=== PATIENT | female | born 1990 | race Caucasian/White ===

== ENCOUNTER 2017-01-03 15:53 | Emergency (ER) | payer MEDICAID ==
[~2017-01-03] VITALS: Ht 162.6 cm; Wt 64.0 kg
[~2017-01-03 15:53] MED LIST: ACET325 PO; META0.52 PO; PREN0.01 PO; SUMA25 PO; ZOFR4TAB3 SL
[2017-01-03 16:02] VITALS: BP 126/75; PULSE 103; RESP 18; TEMP 97.6; O2SAT 97
[2017-01-03] MEDS ORDERED: PREN29TA PO (16:32)
--- NOTE | 2017-01-03 16:56 | PD ---
HPI Chief Complaint: ENT Complaint Time Seen by Provider: 16:56 Travel History International Travel<30 days: No Contact w/Intl Traveler<30days: No Traveled to known affect area: No History of Present Illness HPI 26-year-old 7 month female presents to the ED for evaluation of dull hearing on the left. States that she "gets a lot of wax buildup." She had been cleaning her ears with Q-tips and noticed dark orange wax in the left side so began treating with ear wax softener, sweet oil and peroxide. She states that she did rinse quite a bit of debris from the ear but now she "can't hear" from that side. Denies fever or chills, headaches. She does endorse mild dizziness with certain motions. Endorses good motion and established COLLATERAL CLERK care. Denies chronic health problems. Takes vitamins daily. NKDA. PFSH Past Medical History Medical History: Denies Significant Hx Cancer: No Diabetes: No Diminished Hearing: No Psychiatric: No Immunizations Current: No Migraines: Yes Seizures: No Thyroid Disease: No Ulcer: No Influenza Vaccination: No ?: LMP: 7 MONTHS Past Surgical History Surgical History: No Previous Surgery Other Surgery: No Social History Alcohol Use: No Tobacco Use: No Substance Use: Yes (NOEMY) Allergies-Medications (Allergen,Severity, Reaction): Coded Allergies: Flagyl (Verified Allergy, Mild, headache, 01/03/17) Reported Meds & Prescriptions Reported Meds & Active Scripts Active Reported Plus Iron 29-1 mg ( Vit-Iron Carbonyl) 1 Tab Tab 1 Tab PO DAILY Review of Systems Except as stated in HPI: all other systems reviewed are Neg Physical Exam Narrative GENERAL: Well-nourished, well-developed nontoxic appearing white female in no acute distress. HEAD: Normocephalic. Atraumatic. EYES: No scleral icterus. No injection or drainage. PERRLA. EOMI. ENT: Dark, compacted cerumen impaction on the right. Soft cerumen on the left occludes the tympanic membrane. Nasal mucosa is moist. Oropharynx without erythema, edema or exudate. NECK: Supple, trachea midline. No JVD or lymphadenopathy. CARDIOVASCULAR: Regular rate and rhythm without murmurs, gallops, or rubs. No carotid bruits. 2+ DP and radial pulses bilaterally. RESPIRATORY: Breath sounds clear and equal bilaterally. No accessory muscle use. GASTROINTESTINAL: Abdomen soft, non-tender, nondistended. + Bowel sounds MUSCULOSKELETAL: No cyanosis, or edema. Full, active range of motion. Strength 5/5. Neurovascularly intact. BACK: Nontender without obvious deformity. No CVA tenderness. Data Data Last Documented VS Vital Signs Date Time Temp Pulse Resp B/P Pulse Ox O2 Delivery O2 Flow Rate FiO2 01/03/17 16:02 97.6 103 18 126/75 97 MDM Medical Decision Making Medical Screen Exam Complete: Yes Emergency Medical Condition: Yes Differential Diagnosis Cerumen impaction versus otitis externa versus otitis media versus other Narrative Course 26-year-old 7 month female presents to the ED for evaluation of dull hearing on the left. States that she "gets a lot of wax buildup." She had been cleaning her ears with Q-tips and noticed dark orange wax in the left side so began treating with ear wax softener, sweet oil and peroxide. She states that she did rinse quite a bit of debris from the ear but now she "can't hear" from that side. Vitals reviewed. Physical exam reveals bilateral cerumen impaction, right greater than left. The ears were irrigated with a 50-50 mixture of warm water and peroxide. Quite of bit of debris was flushed from each ear. Patient reported improvement of her hearing symptoms. Recheck of the ears reveals Pearly stanley tympanic membranes bilaterally, mild erythema of bilateral ear canals. I instructed the patient to take Tylenol over the next few days to reduce inflammation in the ear canals, discontinue using Q-tips or overtreating her wax buildup, follow-up with the school year nanny. She indicated understanding of the instructions and was amenable to plan of care. The patient is stable and discharged home. Diagnosis Primary Impression: Bilateral impacted cerumen Additional Impression: Hearing loss of left ear due to cerumen impaction Referrals: Ear / Nose / Throat Specialist Rubber Compounder Supervisor Patient Instructions: Cerumen Impaction (ED), General Instructions Additional Instructions: Rest, hydrate. Avoid over treating your chronic wax build up. Follow-up with the manager medical affairs this week. Consider consulting an school year nanny. Return to the ED for any urgent or emergent medical condition. Disposition: 01 DISCHARGE HOME Condition: Stable Sarina Duarte Jan 03, 2017 16:56
== END 2017-01-03 18:08 | disposition home or self-care (01) ==
LOC: PHEFT 15:53
DX: H61.22 Impacted cerumen, left ear (principal); H91.92 Unspecified hearing loss, left ear
CPT/HCPCS: 99282

== ENCOUNTER 2017-06-17 10:21 | Inpatient (IN) | payer MEDICAID ==
[~2017-06-17] VITALS: Ht 162.6 cm; Wt 63.9 kg
[~2017-06-17 10:21] MED LIST changes: -ACET325 PO; -META0.52 PO; -PREN0.01 PO; +PREN29TA PO; -SUMA25 PO; -ZOFR4TAB3 SL
[2017-06-17 10:28] VITALS: BP 128/70; PULSE 114; RESP 16; TEMP 97.9; O2SAT 97
[2017-06-17 11:11] LABS: BLOOD, URINE LARGE (NEG); GLUCOSE,URINE NEG (NEG); KETONE, URINE TRACE mg/dL (NEG); NITRITE,URINE NEG (NEG); PH, URINE 5.5 (5.0-8.5)
--- NOTE | 2017-06-17 11:14 | PD ---
HPI Chief Complaint: Complaint Time Seen by Provider: 11:05 Travel History International Travel<30 days: No Contact w/Intl Traveler<30days: No Traveled to known affect area: No History of Present Illness HPI This 27-year-old female believes she has blood in the urine. She had a baby about 4 months ago and has not had a period since. She says that about 6 days ago she went to an exercise class. She does not generally exercise. She went to a spin class and she's been having pain in both of her thighs. PFSH Past Medical History Cancer: No Diabetes: No Diminished Hearing: No Psychiatric: No Immunizations Current: No Migraines: Yes Seizures: No Thyroid Disease: No Ulcer: No Tetanus Vaccination: Unknown Influenza Vaccination: No ?: Unknown LMP: May 2016/ Past Surgical History Surgical History: No Previous Surgery Other Surgery: No Social History Alcohol Use: No Tobacco Use: No Substance Use: No Allergies-Medications (Allergen,Severity, Reaction): Coded Allergies: metronidazole (Unverified Adverse Reaction, Severe, Migraine, 06/17/17) Reported Meds & Prescriptions Reported Meds & Active Scripts Active Reported Plus Iron 29-1 mg ( Vit-Iron Carbonyl) 1 Tab Tab 1 Tab PO DAILY Review of Systems General / Constitutional: No: Fever, Chills Eyes: No: Diploplia, Blurred Vision HENT: No: Headaches, Vertigo Cardiovascular: No: Chest Pain or Discomfort, Palpitations Respiratory: No: Cough, Shortness of Breath Genitourinary: Positive: Hematuria Musculoskeletal: Positive: Myalgias Physical Exam Narrative GENERAL: Well-developed female SKIN: Focused skin assessment warm/dry. HEAD: Atraumatic. Normocephalic. EYES: Pupils equal and round. No scleral icterus. No injection or drainage. ENT: No nasal bleeding or discharge. Mucous membranes pink and moist. NECK: Trachea midline. No JVD. CARDIOVASCULAR: Regular rate and rhythm. No murmur appreciated. RESPIRATORY: No accessory muscle use. Clear to auscultation. Breath sounds equal bilaterally. GASTROINTESTINAL: Abdomen soft, non-tender, nondistended. Hepatic and splenic margins not palpable. MUSCULOSKELETAL: No obvious deformities. No clubbing. No cyanosis. No edema. Tenderness of both thighs NEUROLOGICAL: Awake and alert. No obvious cranial nerve deficits. Motor grossly within normal limits. Normal speech. PSYCHIATRIC: Appropriate mood and affect; insight and judgment normal. Data Data Last Documented VS Vital Signs Date Time Temp Pulse Resp B/P (MAP) Pulse Ox O2 Delivery O2 Flow Rate FiO2 06/17/17 10:28 97.9 114 16 128/70 (89) 97 Orders Orders Urinalysis - C+S If Indicated (06/17/17 10:53) Ed Urine Pregnancytest Poc (06/17/17 10:53) Complete Blood Count With Diff (06/17/17 11:09) Comprehensive Metabolic Panel (06/17/17 11:09) Creatine Kinase (Cpk) (06/17/17 11:09) Sodium Chlor 0.9% 1000 Ml Inj (Ns 1000 M (06/17/17 11:15) Urine Culture (06/17/17 11:00) Sodium Chlor 0.9% 1000 Ml Inj (Ns 1000 M (06/17/17 12:00) Labs Laboratory Tests Test 06/17/17 11:00 06/17/17 11:20 Urine Color YELLOW Urine Turbidity HAZY Urine pH 5.5 Urine Specific [place] 1.020 Urine Protein 100 mg/dL Urine Glucose (UA) NEG mg/dL Urine Ketones TRACE mg/dL Urine Occult Blood LARGE Urine Nitrite NEG Urine Bilirubin NEG Urine Leukocyte Esterase NEG Urine WBC 3-5 /hpf Urine WBC Clumps RARE Urine Squamous Epithelial Cells 0-5 /hpf Urine Transitional Epithelial Cells 0-5 /hpf Urine Amorphous Sediment FEW Urine Bacteria FEW /hpf Urine Hyaline Casts 3-5 /lpf Urine Coarse Granular Casts 6-9 /lpf Microscopic Urinalysis Comment CULTURE INDICATED White Blood Count 7.3 TH/MM3 Red Blood Count 5.11 MIL/MM3 Hemoglobin 13.3 GM/DL Hematocrit 40.2 % Mean Corpuscular Volume 78.7 FL Mean Corpuscular Hemoglobin 26.1 PG Mean Corpuscular Hemoglobin Concent 33.2 % Red Cell Distribution Width 14.1 % Platelet Count 275 TH/MM3 Mean Platelet Volume 8.1 FL Neutrophils (%) (Auto) 65.2 % Lymphocytes (%) (Auto) 27.2 % Monocytes (%) (Auto) 5.9 % Eosinophils (%) (Auto) 0.9 % Basophils (%) (Auto) 0.8 % Neutrophils # (Auto) 4.7 TH/MM3 Lymphocytes # (Auto) 2.0 TH/MM3 Monocytes # (Auto) 0.4 TH/MM3 Eosinophils # (Auto) 0.1 TH/MM3 Basophils # (Auto) 0.1 TH/MM3 CBC Comment DIFF FINAL Differential Comment Blood Urea Nitrogen 14 MG/DL Creatinine 0.76 MG/DL Random Glucose 90 MG/DL Total Protein 8.0 GM/DL Albumin 3.7 GM/DL Calcium Level 8.9 MG/DL Alkaline Phosphatase 87 U/L Aspartate Amino Transf (AST/SGOT) 3203 U/L Alanine Aminotransferase (ALT/SGPT) 790 U/L Total Bilirubin 0.5 MG/DL Sodium Level 138 MEQ/L Potassium Level 4.4 MEQ/L Chloride Level 105 MEQ/L Carbon Dioxide Level 25.0 MEQ/L Anion Gap 8 MEQ/L Estimat Glomerular Filtration Rate 93 ML/MIN MDM Medical Decision Making Medical Screen Exam Complete: Yes Emergency Medical Condition: Yes Medical Record Reviewed: Yes Differential Diagnosis Differential includes hematuria, rhabdomyolysis Narrative Course Her creatinine 0.76. Her CPK is greater than 14,000 Diagnosis Primary Impression: Rhabdomyolysis León Patel MD Jun 17, 2017 11:14
[2017-06-17] MEDS ORDERED: SODIUM CHLOR 0.9% 1000 ML INJ 1,000 ML IV ONE ×2 (11:15→12:00)
[2017-06-17 11:21] LABS: URINE COLOR YELLOW (YELLW/STRAW)
[2017-06-17 11:22] LABS: SQUAMOUS EPITHELIAL CELL URINE 0-5 /hpf (0-5); TRANSITIONAL EPI CELLS, URINE 0-5 /hpf
[2017-06-17 11:23] LABS: BACTERIA, URINE FEW /hpf; COMMENT (UR) CULTURE INDICATED; CULTURE IF INDICATED CULTURE INDICATED
[2017-06-17 11:34] LABS: AUTOMATED NEUTROPHIL # 4.7 TH/MM3 (1.8-7.7); BASOPHIL # 0.1 TH/MM3 (0-0.2); BASOPHIL % 0.8 % (0.0-2.0); EOSINOPHIL # 0.1 TH/MM3 (0-0.4); EOSINOPHIL % 0.9 % (0.0-4.0); HEMATOCRIT 40.2 % (35.0-46.0); HEMO FLAGS DIFF FINAL; LYMPH % 27.2 % (9.0-44.0); MEAN CELL VOLUME 78.7 FL (80.0-100.0); MEAN CORPUSCULAR HEMOGLOBIN 26.1 PG (27.0-34.0); MEAN CORPUSCULAR HGB CONC 33.2 % (32.0-36.0); MONO % 5.9 % (0.0-8.0); NEUT % 65.2 % (16.0-70.0); PLATELET COUNT 275 TH/MM3 (150-450); RED BLOOD COUNT 5.11 MIL/MM3 (4.00-5.30); RED CELL DISTRIBUTION WIDTH 14.1 % (11.6-17.2); WHITE BLOOD COUNT 7.3 TH/MM3 (4.0-11.0)
[2017-06-17 11:45] LABS: CHLORIDE 105 MEQ/L (98-107); SODIUM (NA) 138 MEQ/L (136-145)
[2017-06-17 11:48] LABS: ANION GAP 8 MEQ/L (5-15)
[2017-06-17 11:49] LABS: BLOOD UREA NITROGEN 14 MG/DL (7-18)
[2017-06-17 11:50] LABS: POTASSIUM 4.4 MEQ/L (3.5-5.1)
[2017-06-17 11:51] LABS: ALT (GPT) 790 U/L (10-53)
[2017-06-17 11:52] LABS: GLOMERULAR FILTRATION RATE 93 ML/MIN (>89)
[2017-06-17 11:53] LABS: TOTAL BILIRUBIN ADULT 0.5 MG/DL (0.2-1.0)
[2017-06-17 11:54] LABS: ALKALINE PHOSPHATASE 87 U/L (45-117)
[2017-06-17 12:09] LABS: AST (GOT) 3203 U/L (15-37)
[2017-06-17] MEDS ORDERED: BISACODYL 10 MG SUPP RECTAL PRN (13:00)
[2017-06-17] MEDS ORDERED: SENNOSIDES 8.6 MG TAB PO PRN (13:00)
[2017-06-17] MEDS ORDERED: NALOXONE HCL 0.4 MG/ML AMP IV PRN (13:00)
[2017-06-17] MEDS ORDERED: LACTULOSE SYRUP 20 GM/30 ML CUP PO PRN (13:00)
[2017-06-17] MEDS ORDERED: SODIUM CHLORIDE 0.9% FLUSH 10 ML FLUSH IV FLUSH PRN (13:00)
[2017-06-17] MEDS ORDERED: MAGNESIUM HYDROXIDE SUSP 30 ML CUP PO PRN (13:00)
[2017-06-17 13:10] VITALS: BP 140/74; PULSE 92; RESP 14; O2SAT 100
[2017-06-17] MEDS ORDERED: THIAMINE HCL 100 MG TAB PO ONE (13:30)
[2017-06-17 13:44] LABS: PROTHROMBIN TIME - PATIENT 10.9 SEC (9.8-11.6)
--- NOTE | 2017-06-17 13:44 | HHI.HP ---
[facility] Diane Colbert M.D. Admission Diagnosis RHABDOMYOLYSIS Diagnoses: Travel History International Travel<30 Days: No Contact w/Intl Traveler <30 Da: No Traveled to Known Affected Are: No History of Present Illness 27-year-old female with no significant past medical history who presents with 2 day history of dark urine, lightheadedness, feeling dehydrated. Patient went to her first spinning class days ago, and collapsed secondary to bilateral thigh pain afterwards. She says she does not usually exercise. She does continue to have dull pain in bilateral thighs which has continued since this exercise class, but on Saturday noticed dark urine. She says she has been feeling lightheaded over the past several days, without feeling as if she will pass out. Denies any focal signs or symptoms. Review of Systems Except as stated in HPI: all other systems reviewed are Neg She reports chronic constipation. Currently not constipated. Past Family Social History Past Medical History Patient denies any past medical history. Of note she gave 4 months ago. Past Surgical History Patient denies any surgeries in the past Reported Medications Patient takes a vitamin. Allergies: Coded Allergies: metronidazole (Unverified Adverse Reaction, Severe, Migraine, 06/17/17) Family History Patient reports mother with rheumatoid arthritis and diabetes. Father with hypertension, CAD with stent. Social History Nonsmoker. Drinks occasionally. Denies any illicit drugs. Denies any stimulants. Physical Exam Vital Signs Vital Signs Date Time Temp Pulse Resp B/P (MAP) Pulse Ox O2 Delivery O2 Flow Rate FiO2 06/17/17 13:10 92 14 140/74 (96) 100 Room Air 06/17/17 10:28 97.9 114 16 128/70 (89) 97 Physical Exam GENERAL: This is a well-nourished, well-developed patient, in no apparent distress. Alert and oriented 3. SKIN: No rashes, ecchymoses or lesions. Cool and dry. HEAD: Atraumatic. Normocephalic. No temporal or scalp tenderness. EYES: Pupils equal round and reactive. Extraocular motions intact. No scleral icterus. No injection or drainage. ENT: Nose without bleeding, purulent drainage or septal hematoma. Throat without erythema, tonsillar hypertrophy or exudate. Uvula midline. Airway patent. NECK: Trachea midline. No JVD or lymphadenopathy. Supple, nontender, no meningeal signs. CARDIOVASCULAR: Regular rate and rhythm without murmurs, gallops, or rubs. RESPIRATORY: Clear to auscultation. Breath sounds equal bilaterally. No wheezes , rales, or rhonchi. GASTROINTESTINAL: Abdomen soft, non-tender, nondistended. No hepato-splenomegaly , or palpable masses. No guarding. MUSCULOSKELETAL: Extremities without clubbing, cyanosis, or edema. No joint tenderness, effusion, or edema noted. No calf tenderness. Negative Homans sign bilaterally. Patient does have bilateral quadriceps tenderness. NEUROLOGICAL: Awake and alert. Cranial nerves II through XII intact. Motor and sensory grossly within normal limits. Five out of 5 muscle strength in all muscle groups. Normal speech. Laboratory Laboratory Tests Test 06/17/17 11:00 06/17/17 11:20 06/17/17 13:10 Urine Color YELLOW Urine Turbidity HAZY Urine pH 5.5 Urine Specific [place] 1.020 Urine Protein 100 Urine Glucose (UA) NEG Urine Ketones TRACE Urine Occult Blood LARGE Urine Nitrite NEG Urine Bilirubin NEG Urine Leukocyte Esterase NEG Urine WBC 3-5 Urine WBC Clumps RARE Urine Squamous Epithelial Cells 0-5 Urine Transitional Epithelial Cells 0-5 Urine Amorphous Sediment FEW Urine Bacteria FEW Urine Hyaline Casts 3-5 Urine Coarse Granular Casts 6-9 Microscopic Urinalysis Comment CULTURE INDICATED White Blood Count 7.3 Red Blood Count 5.11 Hemoglobin 13.3 Hematocrit 40.2 Mean Corpuscular Volume 78.7 Mean Corpuscular Hemoglobin 26.1 Mean Corpuscular Hemoglobin Concent 33.2 Red Cell Distribution Width 14.1 Platelet Count 275 Mean Platelet Volume 8.1 Neutrophils (%) (Auto) 65.2 Lymphocytes (%) (Auto) 27.2 Monocytes (%) (Auto) 5.9 Eosinophils (%) (Auto) 0.9 Basophils (%) (Auto) 0.8 Neutrophils # (Auto) 4.7 Lymphocytes # (Auto) 2.0 Monocytes # (Auto) 0.4 Eosinophils # (Auto) 0.1 Basophils # (Auto) 0.1 CBC Comment DIFF FINAL Differential Comment Blood Urea Nitrogen 14 Creatinine 0.76 Random Glucose 90 Total Protein 8.0 Albumin 3.7 Calcium Level 8.9 Alkaline Phosphatase 87 Aspartate Amino Transf (AST/SGOT) 3203 Alanine Aminotransferase (ALT/SGPT) 790 Total Bilirubin 0.5 Sodium Level 138 Potassium Level 4.4 Chloride Level 105 Carbon Dioxide Level 25.0 Anion Gap 8 Estimat Glomerular Filtration Rate 93 Date/Time Source Procedure Growth Status 06/17/17 11:00 Urine Clean Catch Urine Culture Pending Received Result Diagram: 06/17/17 1120 06/17/17 1120 Caprini VTE Risk Assessment Caprini VTE Risk Assessment: No/Low Risk (score <= 1) Caprini Risk Assessment Model Point Value = 1 Point Value = 2 Point Value = 3 Point Value = 5 Age 41-60 Minor surgery BMI > 25 kg/m2 Swollen legs Varicose veins or History of unexplained or recurrent spontaneous Oral contraceptives or hormone replacement Sepsis (< 1 month) Serious lung disease, including pneumonia (< 1 month) Abnormal pulmonary function Acute myocardial infarction Congestive heart failure (< 1 month) History of inflammatory bowel disease Medical patient at bed rest Age 61-74 Arthroscopic surgery Major open surgery (> 45 min) Laparoscopic surgery (> 45 min) Malignancy Confined to bed (> 72 hours) Immobilizing plaster cast Central venous access Age >= 75 History of VTE Family history of VTE Factor V Leiden Prothrombin [id number] Lupus anticoagulant Anticardiolipin antibodies Elevated serum homocysteine Heparin-induced thrombocytopenia Other congenital or acquired thrombophilia Stroke (< 1 month) Elective arthroplasty Hip, pelvis, or leg fracture Acute spinal cord injury (< 1 month) Prophylaxis Regimen Total Risk Factor Score Risk Level Prophylaxis Regimen 0-1 Low Early ambulation 2 Moderate Order ONE of the following: *Sequential Compression Device (SCD) *Heparin 5000 units SQ BID 3-4 Higher Order ONE of the following medications: *Heparin 5000 units SQ TID *Enoxaparin/Lovenox 40 mg SQ daily (WT < 150 kg, CrCl > 30 mL/min) *Enoxaparin/Lovenox 30 mg SQ daily (WT < 150 kg, CrCl > 10-29 mL/min) *Enoxaparin/Lovenox 30 mg SQ BID (WT < 150 kg, CrCl > 30 mL/min) AND/OR *Sequential Compression Device (SCD) 5 or more Highest Order ONE of the following medications: *Heparin 5000 units SQ TID (Preferred with Epidurals) *Enoxaparin/Lovenox 40 mg SQ daily (WT < 150 kg, CrCl > 30 mL/min) *Enoxaparin/Lovenox 30 mg SQ daily (WT < 150 kg, CrCl > 10-29 mL/min) *Enoxaparin/Lovenox 30 mg SQ BID (WT < 150 kg, CrCl > 30 mL/min) AND *Sequential Compression Device (SCD) Assessment and Plan Assessment and Plan //Rhabdomyolysis -Secondary to spin class days prior to admission. Bilateral quadriceps pain and tenderness. -Renal function acceptable. Creatinine 0.76 -AST 12/20/02, ALTs 790. CK above detectable limit. -Status post fluid bolus in ER. -Start bicarbonate fluids. Follow-up CK level. -Patient can be discharged when CK below 5000. //Urinalysis with rare white blood cell clumps. -Patient denies any dysuria. Urine has been sent for culture from the ER. No signs of infection. Continue to monitor. Follow up culture. //Prophylaxis. SCDs. Code Status full code Discussed Condition With Patient, nurse, ED physician Physician Certification 2 Midnight Certification Type: Admission for Inpatient Services Order for Inpatient Services The services are ordered in accordance with Medicare regulations or non- Medicare payer requirements, as applicable. In the case of services not specified as inpatient-only, they are appropriately provided as inpatient services in accordance with the 2-midnight benchmark. Estimated LOS (days): 2 days is the estimated time the patient will need to remain in the hospital, assuming treatment plan goals are met and no additional complications. Post-Hospital Plan: Home Toñito Monique MD Jun 17, 2017 13:44
[2017-06-17] MEDS: SODIUM BICARBONATE 8.4% INJ 100 MEQ in DEXTROSE 5% IN WATE 1000ML INJ 1,000 ML IV SCH ×4 (13:48→19:54)
[2017-06-17 14:11] LABS: CKMB 34.2 NG/ML (0.5-3.6)
[2017-06-17 16:20] VITALS: BP 119/76; PULSE 88; RESP 19; TEMP 96.3; O2SAT 100
[2017-06-17 17:55] LABS: CHLORIDE 108 MEQ/L (98-107); POTASSIUM 3.3 MEQ/L (3.5-5.1); SODIUM (NA) 141 MEQ/L (136-145)
[2017-06-17 17:59] LABS: ANION GAP 5 MEQ/L (5-15); BICARBONATE 27.9 MEQ/L (21.0-32.0); BLOOD UREA NITROGEN 11 MG/DL (7-18)
[2017-06-17 18:02] LABS: GLOMERULAR FILTRATION RATE 102 ML/MIN (>89)
[2017-06-17 19:43] LABS: CKMB 23.2 NG/ML (0.5-3.6)
[2017-06-17] MEDS: SODIUM CHLORIDE 0.9% FLUSH 10 ML FLUSH IV FLUSH SCH (19:58)
[2017-06-17 20:00] VITALS: BP 127/77; PULSE 89; RESP 18; TEMP 96.6; O2SAT 96
[2017-06-17] MEDS ORDERED: MORPHINE SULFATE 4 MG/ML INJ IV PUSH ONE (21:00)
[2017-06-18] VITALS: BP 121/80; PULSE 68; RESP 16; TEMP 97; O2SAT 99
[2017-06-18] MEDS: SODIUM BICARBONATE 8.4% INJ 100 MEQ in DEXTROSE 5% IN WATE 1000ML INJ 1,000 ML IV SCH ×4 (02:16→09:09)
[2017-06-18 06:18] LABS: AUTOMATED NEUTROPHIL # 3.1 TH/MM3 (1.8-7.7); BASOPHIL % 0.7 % (0.0-2.0); EOSINOPHIL # 0.1 TH/MM3 (0-0.4); HEMATOCRIT 36.9 % (35.0-46.0); HEMO FLAGS DIFF FINAL; LYMPH % 41.8 % (9.0-44.0); LYMPHOCYTE # 2.5 TH/MM3 (1.0-4.8); MEAN CELL VOLUME 80.6 FL (80.0-100.0); MEAN CORPUSCULAR HEMOGLOBIN 26.5 PG (27.0-34.0); MEAN CORPUSCULAR HGB CONC 32.9 % (32.0-36.0); NEUT % 49.5 % (16.0-70.0); PLATELET COUNT 233 TH/MM3 (150-450); RED BLOOD COUNT 4.58 MIL/MM3 (4.00-5.30); RED CELL DISTRIBUTION WIDTH 14.3 % (11.6-17.2); WHITE BLOOD COUNT 6.1 TH/MM3 (4.0-11.0)
[2017-06-18 06:26] LABS: CHLORIDE 104 MEQ/L (98-107); POTASSIUM 3.4 MEQ/L (3.5-5.1); SODIUM (NA) 141 MEQ/L (136-145)
[2017-06-18 06:31] LABS: ANION GAP 5 MEQ/L (5-15); BICARBONATE 31.6 MEQ/L (21.0-32.0); BLOOD UREA NITROGEN 8 MG/DL (7-18)
[2017-06-18 06:34] LABS: ALT (GPT) 611 U/L (10-53); GLOMERULAR FILTRATION RATE 138 ML/MIN (>89)
[2017-06-18 06:35] LABS: TOTAL BILIRUBIN ADULT 0.2 MG/DL (0.2-1.0)
[2017-06-18 06:37] LABS: ALKALINE PHOSPHATASE 66 U/L (45-117)
[2017-06-18 06:50] LABS: AST (GOT) 2171 U/L (15-37)
[2017-06-18] MEDS: THIAMINE HCL 100 MG TAB PO SCH (08:10)
[2017-06-18] MEDS: SODIUM CHLORIDE 0.9% FLUSH 10 ML FLUSH IV FLUSH SCH ×2 (08:11→19:31)
[2017-06-18 08:19] VITALS: BP 120/78; PULSE 79; RESP 19; TEMP 96.4; O2SAT 97
[2017-06-18 09:07] LABS: CKMB 16.4 NG/ML (0.5-3.6)
--- NOTE | 2017-06-18 10:43 | HHI.PR ---
Subjective Remarks Follow up for rhabdomyolysis. Patient is currently doing well. She denies any chest pain, shortness of breath, fever, chills. Her urine is getting clearer. Objective Vitals Vital Signs Date Time Temp Pulse Resp B/P (MAP) Pulse Ox O2 Delivery O2 Flow Rate FiO2 06/18/17 08:19 96.4 79 19 120/78 (92) 97 06/18/17 00:00 97.0 68 16 121/80 (94) 99 06/17/17 20:00 96.6 89 18 127/77 (94) 96 06/17/17 16:20 96.3 88 19 119/76 (90) 100 06/17/17 14:10 06/17/17 13:10 92 14 140/74 (96) 100 Room Air I/O 06/17/17 06/17/17 06/17/17 06/18/17 06/18/17 06/18/17 07:00 15:00 23:00 07:00 15:00 23:00 Intake Total 2000 ml 817 ml Balance 2000 ml 817 ml Intake IV Total 2000 ml 817 ml Result Diagram: 06/18/1751206/18/17512 Objective Remarks GENERAL: AOX3, NAD. SKIN: Warm and dry. HEAD: Normocephalic. EYES: No scleral icterus. No injection or drainage. NECK: Supple, trachea midline. No JVD or lymphadenopathy. CARDIOVASCULAR: Regular rate and rhythm without murmurs, gallops, or rubs. RESPIRATORY: Breath sounds equal bilaterally. No accessory muscle use. GASTROINTESTINAL: Abdomen soft, non-tender, nondistended. MUSCULOSKELETAL: No cyanosis, or edema. BACK: Nontender without obvious deformity. No CVA tenderness. Procedures None. A/P Problem List: (1) Rhabdomyolysis ICD Code: M62.82 - Rhabdomyolysis Status: Acute Assessment and Plan Ms. Monsalve is a pleasant 27 year old female who was admitted on 06/17/2017 due to 2 day history of dark urine, lightheadedness, feeling of dehydration. ED work up indicated severe rhabdomyolysis, likely induced by intense exercise which patient is not used to. - Rhabdomyolysis - Likely due to intense exercise. - Patient received Bicarb. Serum bicarb this morning was 31.6. - Will discontinue bicarb drip and start patient on NS at 250-300cc/hour. - Repeat CMP in the afternoon showed Total CK 532538 --> 17385. - Clinically patient is doing well. Urine is getting clearer. - Once Total CK < 5000, patient can be discharged home. - Transaminitis - AST 3203 --> 2171 --> 2308. ALT 790 --> 611 --> 658. - Alk phos within normal range. No elevation in bilirubin or INR. - This likely represent no acute liver injury. However, we will check Viral hepatitis panel. - AST, ALT elevations are likely due to skeletal muscle release of AST, ALT. - As Total CK improves, AST, ALT (lashay AST) should improve as well. Full code. SCDs, ambulation. Jocelyn Wiseman DO Jun 18, 2017 10:43
[2017-06-18 12:10] VITALS: BP 133/84; PULSE 74; RESP 19; TEMP 95.6; O2SAT 98
[2017-06-18] MEDS: SODIUM CHLOR 0.9% 1000 ML INJ 1,000 ML IV SCH ×4 (12:32→21:18)
[2017-06-18 16:30] VITALS: BP 157/95; PULSE 75; RESP 19; TEMP 97.6; O2SAT 99
[2017-06-18 17:16] LABS: CHLORIDE 109 MEQ/L (98-107); POTASSIUM 3.9 MEQ/L (3.5-5.1); SODIUM (NA) 142 MEQ/L (136-145)
[2017-06-18 17:20] LABS: ANION GAP 6 MEQ/L (5-15); BICARBONATE 27.4 MEQ/L (21.0-32.0); BLOOD UREA NITROGEN 10 MG/DL (7-18)
[2017-06-18 17:23] LABS: ALT (GPT) 658 U/L (10-53); GLOMERULAR FILTRATION RATE 113 ML/MIN (>89)
[2017-06-18 17:25] LABS: TOTAL BILIRUBIN ADULT 0.1 MG/DL (0.2-1.0)
[2017-06-18 17:26] LABS: ALKALINE PHOSPHATASE 68 U/L (45-117)
[2017-06-18 17:39] LABS: AST (GOT) 2308 U/L (15-37)
[2017-06-18 20:00] VITALS: BP 151/100; PULSE 68; RESP 18; TEMP 98.4; O2SAT 98
[2017-06-18 22:01] LABS: CKMB 10.8 NG/ML (0.5-3.6)
[2017-06-18] MEDS: ONDANSETRON HCL 4 MG/2 ML VIAL IVP PRN (22:37)
[2017-06-19] VITALS: BP 146/85; PULSE 62; RESP 18; TEMP 96.5; O2SAT 99
[2017-06-19] MEDS: SODIUM CHLOR 0.9% 1000 ML INJ 1,000 ML IV SCH ×5 (01:05→14:28)
[2017-06-19 08:00] VITALS: BP 116/76; PULSE 54; RESP 16; TEMP 98; O2SAT 96
[2017-06-19 08:29] LABS: CHLORIDE 111 MEQ/L (98-107); POTASSIUM 3.5 MEQ/L (3.5-5.1); SODIUM (NA) 144 MEQ/L (136-145)
[2017-06-19 08:34] LABS: ANION GAP 7 MEQ/L (5-15); BICARBONATE 26.3 MEQ/L (21.0-32.0); BLOOD UREA NITROGEN 6 MG/DL (7-18)
[2017-06-19 08:37] LABS: ALT (GPT) 537 U/L (10-53); GLOMERULAR FILTRATION RATE 122 ML/MIN (>89)
[2017-06-19 08:38] LABS: TOTAL BILIRUBIN ADULT 0.2 MG/DL (0.2-1.0)
[2017-06-19 08:40] LABS: ALKALINE PHOSPHATASE 62 U/L (45-117)
[2017-06-19] MEDS: THIAMINE HCL 100 MG TAB PO SCH (08:41)
[2017-06-19] MEDS: SODIUM CHLORIDE 0.9% FLUSH 10 ML FLUSH IV FLUSH SCH ×2 (08:41→21:00)
[2017-06-19 08:45] LABS: AST (GOT) 1635 U/L (15-37)
[2017-06-19 10:57] LABS: CKMB 6.3 NG/ML (0.5-3.6)
[2017-06-19 12:00] VITALS: BP 122/77; PULSE 62; RESP 16; TEMP 97.8; O2SAT 98
--- NOTE | 2017-06-19 14:08 | HHI.PR ---
Subjective Remarks Discussed with nursing, reports the patient reporting thigh issues once her fluids were increased to 300 cc/h. When discussing with the patient, says that her left leg and knee are slightly swollen and her says that her face looks slightly swollen, otherwise no acute call overnight. Objective Vital Signs Date Time Temp Pulse Resp B/P (MAP) Pulse Ox O2 Delivery O2 Flow Rate FiO2 06/19/17 12:00 97.8 62 16 122/77 (92) 98 06/19/17 08:00 98.0 54 16 116/76 (89) 96 06/19/17 00:00 96.5 62 18 146/85 (105) 99 06/18/17 20:00 98.4 68 18 151/100 (117) 98 06/18/17 16:30 97.6 75 19 157/95 (115) 99 I/O 06/18/17 06/18/17 06/18/17 06/19/17 06/19/17 06/19/17 07:00 15:00 23:00 07:00 15:00 23:00 Intake Total 62976 ml 2507 ml 300 ml Balance 07410 ml 2507 ml 300 ml Intake Oral 8910 ml 300 ml IV Total 4749 ml 2507 ml # Voids 12 1 Result Diagram: 06/18/17 0513 06/19/17 0800 Objective Remarks GENERAL: No acute distress, ENT: Very subtle facial swelling CARDIOVASCULAR: Regular rate and rhythm without murmurs, gallops, or rubs. RESPIRATORY: Breath sounds equal and clear bilaterally. Unlabored breathing GASTROINTESTINAL: Abdomen soft, non-tender, nondistended. MUSCULOSKELETAL: Mild nontender edema noted from the distal thigh and knee on the left side, none on the right, no pedal edema bilaterally, intact range of motion of both knees with no pain, no erythema noted over knees or legs for that matter A/P Assessment and Plan Ms. Monsalve is a pleasant 27 year old female who was admitted on 06/17/2017 due to 2 day history of dark urine, lightheadedness, feeling of dehydration. ED work up indicated severe rhabdomyolysis, likely induced by intense exercise which patient is not used to. - Rhabdomyolysis - Source still questionable since this seems to be awfully high or just intense exercise for 1 session - We'll decrease rate down to 200 cc an hour given global edema in the patient - trend CKs - Clinically patient is doing well. - Once Total CK < 5000, patient can be discharged home on heavy po liquid intake. - Transaminitis - likely from muscle injury as oppose to liver injury, viral hep panel negative, trend Full code. SCDs, ambulation. Scott Reynolds MD Jun 19, 2017 14:08
[2017-06-19 16:00] VITALS: BP 122/77; PULSE 62; RESP 16; TEMP 97.8; O2SAT 98
[2017-06-19 20:00] VITALS: BP 150/92; PULSE 59; RESP 20; TEMP 97.6; O2SAT 99
[2017-06-20] VITALS: BP 142/89; PULSE 46; RESP 20; TEMP 97.1; O2SAT 99
[2017-06-20] MEDS: SODIUM CHLOR 0.9% 1000 ML INJ 1,000 ML IV SCH ×6 (03:42→23:42)
[2017-06-20 04:00] VITALS: BP 153/89; PULSE 45; RESP 20; TEMP 96.3; O2SAT 99
[2017-06-20 06:47] LABS: ALT (GPT) 374 U/L (10-53); AST (GOT) 881 U/L (15-37)
[2017-06-20 06:49] LABS: INDIRECT BILIRUBIN 0.1 MG/DL (0.0-0.8); TOTAL BILIRUBIN ADULT 0.2 MG/DL (0.2-1.0)
[2017-06-20 06:50] LABS: ALKALINE PHOSPHATASE 50 U/L (45-117)
[2017-06-20 08:00] VITALS: BP 161/99; PULSE 54; RESP 16; TEMP 97.4; O2SAT 97
[2017-06-20] MEDS: THIAMINE HCL 100 MG TAB PO SCH (08:34)
[2017-06-20 08:38] LABS: CKMB 3.8 NG/ML (0.5-3.6)
--- NOTE | 2017-06-20 10:03 | HHI.PR ---
Subjective Remarks Patient seen and examined today for follow-up on rhabdomyolysis. Patient states that she is doing better. Still having cramps in her thighs. She started developing some swelling in her knees and eyes yesterday from increased IV fluid rate. The rate was turned down and the swelling improved. Patient very eager to go home and be with her child. Objective Vitals Vital Signs Date Time Temp Pulse Resp B/P (MAP) Pulse Ox O2 Delivery O2 Flow Rate FiO2 06/20/17 08:00 97.4 54 16 161/99 (119) 97 06/20/17 04:00 96.3 45 20 153/89 (110) 99 06/20/17 00:00 97.1 46 20 142/89 (106) 99 06/19/17 20:00 97.6 59 20 150/92 (111) 99 06/19/17 16:00 97.8 62 16 122/77 (92) 98 06/19/17 12:00 97.8 62 16 122/77 (92) 98 I/O 06/19/17 06/19/17 06/19/17 06/20/17 06/20/17 06/20/17 07:00 15:00 23:00 07:00 15:00 23:00 Intake Total 2507 ml 300 ml 1500 ml 960 ml 240 ml Balance 2507 ml 300 ml 1500 ml 960 ml 240 ml Intake Oral 300 ml 1500 ml 960 ml 240 ml IV Total 2507 ml # Voids 1 15 5 # Bowel Movements 0 1 Result Diagram: 06/18/17 0513 06/19/17 0800 Objective Remarks GENERAL: Well-developed, well-nourished, in no acute distress. alert and orientated HEENT: Head is normocephalic without any lesions or masses noted. Facial features are symmetric. Eyes. Extraocular muscles are intact. Conjunctivae were clear. NECK: Supple without any masses. Trachea midline no deviation. No JVD, CARDIAC: Regular rhythm, regular rate. S1/S2 are heard. No murmurs gallops or rubs. LUNGS: Clear to auscultation bilaterally. No wheeze, rhonchi or rales. No use of accessory muscles on inspiration or expiration. ABDOMEN: Soft, nontender. Nondistended. Bowel sounds heard in all 4 quadrants. No organomegaly or masses. Negative rebound, negative guarding EXTREMITIES: No edema, pulses are equal bilaterally. No cyanosis or clubbing NEUROLOGY: Mood and affect appear appropriate. Cranial nerves II through XII grossly intact. Moving all extremities, speech is clear Procedures None. Urinary Catheter: No Vascular Central Line Catheter: No A/P Assessment and Plan Rhabdomyolysis Likely related to intense exercise at a spinning class Continue IV fluids at 200 cc an hour, continue to encourage by mouth intake Continue trend CK which is coming down nicely. Anticipate when CK less than 5000 plan discharge home with by mouth intake Transaminitis Likely from muscle injury as opposed to liver injury Hepatitis panel was negative Trending down nicely DVT prevention Low risk, early ambulation Discharge Planning Discharge planning with CPK less than 5000 Neptali Burrows Jun 20, 2017 10:03
[2017-06-20 12:00] VITALS: BP 134/82; PULSE 54; RESP 16; TEMP 97.6; O2SAT 98
[2017-06-20 15:29] LABS: CREATINE KINASE GREATER THAN 14000 U/L (26-192)
[2017-06-20 15:35] LABS: CREATINE KINASE GREATER THAN 14000 U/L (26-192)
[2017-06-20 15:40] LABS: CREATINE KINASE GREATER THAN 14000 U/L (26-192)
[2017-06-20 15:42] LABS: CREATINE KINASE GREATER THAN 14000 U/L (26-192)
[2017-06-20 15:43] LABS: CREATINE KINASE GREATER THAN 14000 U/L (26-192)
[2017-06-20 15:45] LABS: CREATINE KINASE GREATER THAN 14000 U/L (26-192)
[2017-06-20 20:00] VITALS: BP 137/77; PULSE 67; RESP 18; TEMP 98.1; O2SAT 99
[2017-06-20] MEDS: SODIUM CHLORIDE 0.9% FLUSH 10 ML FLUSH IV FLUSH SCH ×2 (20:46→21:00)
[2017-06-21] VITALS: BP 143/80; PULSE 51; RESP 18; TEMP 97.8; O2SAT 98
[2017-06-21] MEDS: SODIUM CHLOR 0.9% 1000 ML INJ 1,000 ML IV SCH ×4 (04:23→23:21)
[2017-06-21 07:17] LABS: ALT (GPT) 309 U/L (10-53); AST (GOT) 584 U/L (15-37)
[2017-06-21 07:20] LABS: TOTAL BILIRUBIN ADULT 0.1 MG/DL (0.2-1.0)
[2017-06-21 07:21] LABS: ALKALINE PHOSPHATASE 54 U/L (45-117)
[2017-06-21 07:46] LABS: CREATINE KINASE GREATER THAN 14000 U/L (26-192)
[2017-06-21 08:00] VITALS: BP 125/81; PULSE 55; RESP 16; TEMP 96; O2SAT 99
[2017-06-21 08:09] LABS: CKMB 3.1 NG/ML (0.5-3.6)
[2017-06-21] MEDS: THIAMINE HCL 100 MG TAB PO SCH (09:01)
[2017-06-21] MEDS: SODIUM CHLORIDE 0.9% FLUSH 10 ML FLUSH IV FLUSH SCH ×2 (09:02→21:00)
--- NOTE | 2017-06-21 10:37 | HHI.PR ---
Subjective Remarks Patient seen and examined today for follow-up on rhabdomyolysis. Patient states that she's developing some thigh edema. I discussed with her that I will decrease the rate of IV fluid as well as she needs to ambulate more in order facilitate fluid movement. Objective Vitals Vital Signs Date Time Temp Pulse Resp B/P (MAP) Pulse Ox O2 Delivery O2 Flow Rate FiO2 06/21/17 08:00 96.0 55 16 125/81 (96) 99 06/21/17 00:00 97.8 51 18 143/80 (101) 98 06/20/17 20:00 98.1 67 18 137/77 (97) 99 06/20/17 12:00 97.6 54 16 134/82 (99) 98 I/O 06/20/17 06/20/17 06/20/17 06/21/17 06/21/17 06/21/17 07:00 15:00 23:00 07:00 15:00 23:00 Intake Total 960 ml 1990 ml 2000 ml 840 ml 1000 ml Balance 960 ml 1990 ml 2000 ml 840 ml 1000 ml Intake Oral 960 ml 990 ml 840 ml IV Total 1000 ml 2000 ml 1000 ml # Voids 5 4 3 # Bowel Movements 1 0 Result Diagram: 06/18/17 0513 06/19/17 0800 Objective Remarks GENERAL: Well-developed, well-nourished, in no acute distress. alert and orientated HEENT: Head is normocephalic without any lesions or masses noted. Facial features are symmetric. Eyes. Extraocular muscles are intact. Conjunctivae were clear. NECK: Supple without any masses. Trachea midline no deviation. No JVD, CARDIAC: Regular rhythm, regular rate. S1/S2 are heard. No murmurs gallops or rubs. LUNGS: Clear to auscultation bilaterally. No wheeze, rhonchi or rales. No use of accessory muscles on inspiration or expiration. ABDOMEN: Soft, nontender. Nondistended. Bowel sounds heard in all 4 quadrants. No organomegaly or masses. Negative rebound, negative guarding EXTREMITIES: No edema, pulses are equal bilaterally. No cyanosis or clubbing NEUROLOGY: Mood and affect appear appropriate. Cranial nerves II through XII grossly intact. Moving all extremities, speech is clear Procedures None. Urinary Catheter: No Vascular Central Line Catheter: No A/P Assessment and Plan Rhabdomyolysis, improving Likely related to intense exercise at a spinning class Continue IV fluids at 150 cc an hour, continue to encourage by mouth intake Continue trend CK which is coming down nicely. Anticipate when CK less than 5000 plan discharge home with by mouth intake Transaminitis, improving Likely from muscle injury as opposed to liver injury Hepatitis panel was negative Trending down nicely DVT prevention Low risk, early ambulation Discharge Planning Discharge planning with CPK less than 5000 Neptali Burrows Jun 21, 2017 10:37
[2017-06-21 12:00] VITALS: BP 131/80; PULSE 67; RESP 16; TEMP 97.5; O2SAT 99
[2017-06-21 16:00] VITALS: BP 142/81; PULSE 52; RESP 18; TEMP 97.5; O2SAT 100
[2017-06-21 20:04] VITALS: BP 146/92; PULSE 68; RESP 16; TEMP 98.7; O2SAT 95
[2017-06-22 00:55] VITALS: BP 169/100; PULSE 51; RESP 18; TEMP 96.5; O2SAT 98
[2017-06-22] MEDS: SODIUM CHLOR 0.9% 1000 ML INJ 1,000 ML IV SCH (05:23)
[2017-06-22 08:00] VITALS: BP 140/87; PULSE 59; RESP 17; TEMP 98.2; O2SAT 98
[2017-06-22 08:02] LABS: ALT (GPT) 309 U/L (10-53); AST (GOT) 484 U/L (15-37)
[2017-06-22 08:03] LABS: INDIRECT BILIRUBIN 0.1 MG/DL (0.0-0.8); TOTAL BILIRUBIN ADULT 0.2 MG/DL (0.2-1.0)
[2017-06-22 08:05] LABS: ALKALINE PHOSPHATASE 59 U/L (45-117)
--- NOTE | 2017-06-22 08:08 | HHI.PR ---
Subjective Remarks Patient seen and examined today for follow-up on rhabdomyolysis. Patient resting In bed. Still having generalized edema from increased IV fluid. Denies any leg cramps at this time. Does indicate that she has sore neck. Discussed with her could be a possibility of sleeping in a different bed as well as different pillows. Objective Vitals Vital Signs Date Time Temp Pulse Resp B/P (MAP) Pulse Ox O2 Delivery O2 Flow Rate FiO2 06/22/17 00:55 96.5 51 18 169/100 (123) 98 06/21/17 20:04 98.7 68 16 146/92 (110) 95 06/21/17 16:00 97.5 52 18 142/81 (101) 100 06/21/17 12:00 97.5 67 16 131/80 (97) 99 I/O 06/21/17 06/21/17 06/21/17 06/22/17 06/22/17 06/22/17 07:00 15:00 23:00 07:00 15:00 23:00 Intake Total 840 ml 1630 ml 1780 ml Balance 840 ml 1630 ml 1780 ml Intake Oral 840 ml 630 ml 780 ml IV Total 1000 ml 1000 ml # Voids 3 2 4 2 # Bowel Movements 0 Result Diagram: 06/18/17 0513 06/19/17 0800 Objective Remarks GENERAL: Well-developed, well-nourished, in no acute distress. alert and orientated HEENT: Head is normocephalic without any lesions or masses noted. Facial features are symmetric. Eyes. Extraocular muscles are intact. Conjunctivae were clear. NECK: Supple without any masses. Trachea midline no deviation. No JVD, CARDIAC: Regular rhythm, regular rate. S1/S2 are heard. No murmurs gallops or rubs. LUNGS: Clear to auscultation bilaterally. No wheeze, rhonchi or rales. No use of accessory muscles on inspiration or expiration. ABDOMEN: Soft, nontender. Nondistended. Bowel sounds heard in all 4 quadrants. No organomegaly or masses. Negative rebound, negative guarding EXTREMITIES: No edema, pulses are equal bilaterally. No cyanosis or clubbing NEUROLOGY: Mood and affect appear appropriate. Cranial nerves II through XII grossly intact. Moving all extremities, speech is clear Procedures None. Urinary Catheter: No Vascular Central Line Catheter: No A/P Assessment and Plan Rhabdomyolysis, improving Likely related to intense exercise at a spinning class Continue IV fluids at 150 cc an hour, continue to encourage by mouth intake Continue trend CK which is coming down nicely. Anticipate when CK less than 5000 plan discharge home with by mouth intake Transaminitis, improving Likely from muscle injury as opposed to liver injury Hepatitis panel was negative Trending down nicely DVT prevention Low risk, early ambulation Discharge Planning Discharge planning with CPK less than 5000 Neptali Burrows Jun 22, 2017 08:08
[2017-06-22 08:23] LABS: BICARBONATE 22.1 MEQ/L (21.0-32.0); BLOOD UREA NITROGEN 7 MG/DL (7-18)
[2017-06-22 08:36] LABS: CHLORIDE 108 MEQ/L (98-107); GLOMERULAR FILTRATION RATE 122 ML/MIN (>89)
[2017-06-22 08:37] LABS: ANION GAP 11 MEQ/L (5-15); SODIUM (NA) 141 MEQ/L (136-145)
[2017-06-22] MEDS: SODIUM CHLORIDE 0.9% FLUSH 10 ML FLUSH IV FLUSH SCH ×2 (09:00→20:34)
[2017-06-22] MEDS: THIAMINE HCL 100 MG TAB PO SCH (09:06)
[2017-06-22 09:15] LABS: POTASSIUM 2.9 MEQ/L (3.5-5.1)
[2017-06-22 09:16] LABS: CREATINE KINASE GREATER THAN 14000 U/L (26-192)
[2017-06-22] MEDS ORDERED: POTASSIUM CHLORIDE 25 MEQ EFFERVESCENT TAB PO ONE (09:30)
[2017-06-22] MEDS: NS + KCL 20 MEQ INJ 1,000 ML IV SCH ×2 (09:30→20:36)
[2017-06-22] MEDS: ONDANSETRON HCL 4 MG/2 ML VIAL IVP PRN (10:43)
[2017-06-22 12:00] VITALS: BP 166/96; PULSE 52; RESP 19; TEMP 97.9; O2SAT 96
[2017-06-22 16:00] VITALS: BP 153/80; PULSE 50; RESP 18; TEMP 97.7; O2SAT 95
[2017-06-22 20:15] VITALS: BP 161/103; PULSE 55; RESP 18; TEMP 97.5; O2SAT 99
[2017-06-23 00:56] VITALS: BP 175/99; PULSE 51; RESP 16; TEMP 96.3; O2SAT 97
[2017-06-23] MEDS: NS + KCL 20 MEQ INJ 1,000 ML IV SCH ×2 (05:48→16:54)
[2017-06-23 08:00] VITALS: BP 135/82; PULSE 72; RESP 16; TEMP 97.3; O2SAT 100
[2017-06-23] MEDS: THIAMINE HCL 100 MG TAB PO SCH (08:05)
[2017-06-23] MEDS: SODIUM CHLORIDE 0.9% FLUSH 10 ML FLUSH IV FLUSH SCH ×2 (08:07→21:10)
[2017-06-23 08:24] LABS: CHLORIDE 106 MEQ/L (98-107); POTASSIUM 3.3 MEQ/L (3.5-5.1); SODIUM (NA) 140 MEQ/L (136-145)
[2017-06-23 09:02] LABS: ALKALINE PHOSPHATASE 77 U/L (45-117); ALT (GPT) 333 U/L (10-53); ANION GAP 7 MEQ/L (5-15); AST (GOT) 430 U/L (15-37); BLOOD UREA NITROGEN 8 MG/DL (7-18); CREATINE KINASE 12237 U/L (26-192); GLOMERULAR FILTRATION RATE 120 ML/MIN (>89); MAGNESIUM 1.5 MG/DL (1.5-2.5); TOTAL BILIRUBIN ADULT 0.2 MG/DL (0.2-1.0)
[2017-06-23 09:05] LABS: CKMB 4.1 NG/ML (0.5-3.6)
[2017-06-23] MEDS ORDERED: POTASSIUM CHLORIDE 20 MEQ CONTROLLED RELEASE TAB PO ONE (09:30)
[2017-06-23] MEDS ORDERED: MAGNESIUM OXIDE 400 MG TAB PO ONE (11:00)
--- NOTE | 2017-06-23 11:27 | HHI.PR ---
Subjective Remarks Patient seen and examined today for follow-up on rhabdomyolysis. Patient is resting comfortably in bed. Indicates that her peripheral edema is improving. I notified her of the decreasing numbers and she was happy. We are hoping she can go home in 24-48 hours Objective Vitals Vital Signs Date Time Temp Pulse Resp B/P (MAP) Pulse Ox O2 Delivery O2 Flow Rate FiO2 06/23/17 08:00 97.3 72 16 135/82 (99) 100 06/23/17 04:54 06/23/17 00:56 96.3 51 16 175/99 (124) 97 06/22/17 20:15 97.5 55 18 161/103 (122) 99 06/22/17 16:00 97.7 50 18 153/80 (104) 95 06/22/17 12:00 97.9 52 19 166/96 (119) 96 I/O 06/22/17 06/22/17 06/22/17 06/23/17 06/23/17 06/23/17 07:00 15:00 23:00 07:00 15:00 23:00 Intake Total 300 ml 250 ml Output Total 500 ml 250 ml 1450 ml Balance -200 ml 0 ml -1450 ml Intake Oral 250 ml IV Total 300 ml Output Urine Total 500 ml 250 ml 1450 ml # Voids 2 Result Diagram: 06/23/17 0615 Objective Remarks GENERAL: Well-developed, well-nourished, in no acute distress. alert and orientated HEENT: Head is normocephalic without any lesions or masses noted. Facial features are symmetric. Eyes. Extraocular muscles are intact. Conjunctivae were clear. NECK: Supple without any masses. Trachea midline no deviation. No JVD, CARDIAC: Regular rhythm, regular rate. S1/S2 are heard. No murmurs gallops or rubs. LUNGS: Clear to auscultation bilaterally. No wheeze, rhonchi or rales. No use of accessory muscles on inspiration or expiration. ABDOMEN: Soft, nontender. Nondistended. Bowel sounds heard in all 4 quadrants. No organomegaly or masses. Negative rebound, negative guarding EXTREMITIES: No edema, pulses are equal bilaterally. No cyanosis or clubbing NEUROLOGY: Mood and affect appear appropriate. Cranial nerves II through XII grossly intact. Moving all extremities, speech is clear Procedures None. Urinary Catheter: No Vascular Central Line Catheter: No A/P Assessment and Plan Rhabdomyolysis, improving Likely related to intense exercise at a spinning class Continue IV fluids at 100 cc an hour, continue to encourage by mouth intake Continue trend CK which is coming down nicely. Anticipate when CK less than 5000 plan discharge home with by mouth intake Electrolyte abnormalities, hypokalemia, hypomagnesemia Secondary to copious IV hydration Continued monitoring place as needed Transaminitis, improving Likely from muscle injury as opposed to liver injury Hepatitis panel was negative Trending down nicely DVT prevention Low risk, early ambulation Discharge Planning Discharge planning with CPK less than 5000 Neptali Burrows Jun 23, 2017 11:27
[2017-06-23 12:00] VITALS: BP 139/84; PULSE 63; RESP 16; TEMP 97.2; O2SAT 100
[2017-06-23 20:00] VITALS: BP 158/91; PULSE 58; RESP 16; TEMP 98.5; O2SAT 99
[2017-06-24] MEDS: NS + KCL 20 MEQ INJ 1,000 ML IV SCH (01:00)
[2017-06-24 01:04] VITALS: BP 154/98
[2017-06-24 06:57] LABS: CHLORIDE 108 MEQ/L (98-107); POTASSIUM 3.7 MEQ/L (3.5-5.1); SODIUM (NA) 143 MEQ/L (136-145)
[2017-06-24 07:00] LABS: ANION GAP 7 MEQ/L (5-15)
[2017-06-24 07:01] LABS: BLOOD UREA NITROGEN 8 MG/DL (7-18)
[2017-06-24 07:04] LABS: ALT (GPT) 243 U/L (10-53); AST (GOT) 250 U/L (15-37); GLOMERULAR FILTRATION RATE 115 ML/MIN (>89)
[2017-06-24 07:05] LABS: TOTAL BILIRUBIN ADULT 0.2 MG/DL (0.2-1.0)
[2017-06-24 07:07] LABS: ALKALINE PHOSPHATASE 64 U/L (45-117)
[2017-06-24 07:30] LABS: CREATINE KINASE 7201 U/L (26-192)
[2017-06-24 07:46] LABS: CKMB 3.8 NG/ML (0.5-3.6)
[2017-06-24 08:00] VITALS: BP 155/98; PULSE 56; RESP 17; TEMP 96.6; O2SAT 98
[2017-06-24] MEDS: SODIUM CHLORIDE 0.9% FLUSH 10 ML FLUSH IV FLUSH SCH (09:00)
[2017-06-24] MEDS: THIAMINE HCL 100 MG TAB PO SCH (09:10)
[2017-06-24] MEDS ORDERED: TYLETAB34 PO (10:35)
[2017-06-24] MEDS ORDERED: BACT800T5 PO (10:36)
--- NOTE | 2017-06-24 10:40 | HHI.DCPOC ---
Discharge Care Plan Diagnosis: (1) Rhabdomyolysis Goals to Promote Your Health * To prevent worsening of your condition and complications * To maintain your health at the optimal level Directions to Meet Your Goals Take your medications as prescribed Follow your dietary instruction Follow activity as directed Keep your appointments as scheduled Take your immunizations and boosters as scheduled If your symptoms worsen call your PCP, if no PCP go to Urgent Care Center or Emergency Room Smoking is Dangerous to Your Health. Avoid second hand smoke Call the 24-hour hour crisis hotline for domestic abuse at Libia Cuenca MD Jun 24, 2017 10:40
--- NOTE | 2017-06-24 10:40 | HHI.DS ---
Discharge Summary Admission Date Jun 17, 2017 at 12:52 Discharge Date: Jun 24, 2017 Admitting Diagnosis RHABDOMYOLYSIS (1) Rhabdomyolysis ICD Code: M62.82 - Rhabdomyolysis Status: Acute Procedures None. Brief History - From Admission 27-year-old female with no significant past medical history who presents with 2 day history of dark urine, lightheadedness, feeling dehydrated. Patient went to her first spinning class days ago, and collapsed secondary to bilateral thigh pain afterwards. She says she does not usually exercise. She does continue to have dull pain in bilateral thighs which has continued since this exercise class, but on Saturday noticed dark urine. She says she has been feeling lightheaded over the past several days, without feeling as if she will pass out. Denies any focal signs or symptoms. CBC/BMP: 06/24/17 0617 Significant Findings Laboratory Tests Test 06/22/17 06:40 06/23/17 06:15 06/24/17 06:17 Total Protein 5.7 GM/DL (6.4-8.2) 6.2 GM/DL (6.4-8.2) 5.8 GM/DL (6.4-8.2) Albumin 2.8 GM/DL (3.4-5.0) 3.1 GM/DL (3.4-5.0) 2.8 GM/DL (3.4-5.0) Calcium Level 7.8 MG/DL (8.5-10.1) Aspartate Amino Transf (AST/SGOT) 484 U/L (15-37) 430 U/L (15-37) 250 U/L (15-37) Alanine Aminotransferase (ALT/SGPT) 309 U/L (10-53) 333 U/L (10-53) 243 U/L (10-53) Potassium Level 2.9 MEQ/L (3.5-5.1) 3.3 MEQ/L (3.5-5.1) Chloride Level 108 MEQ/L (98-107) 108 MEQ/L (98-107) Total Creatine Kinase GREATER THAN 14727 U/L 26304 U/L (26-192) 7201 U/L (26-192) Creatine Kinase MB 4.0 NG/ML (0.5-3.6) 4.1 NG/ML (0.5-3.6) 3.8 NG/ML (0.5-3.6) PE at Discharge GENERAL: This is a well-nourished, well-developed patient, in no apparent distress. CARDIOVASCULAR: Regular rate and rhythm without murmurs, gallops, or rubs. RESPIRATORY: Clear to auscultation. Breath sounds equal bilaterally. No wheezes , rales, or rhonchi. GASTROINTESTINAL: Abdomen soft, non-tender, nondistended. Normal active bowel sounds MUSCULOSKELETAL: Extremities without clubbing, cyanosis, or edema. NEURO: Alert & Oriented x4 to person, place, time, situation. Moves all ext x4 Pt update on day of discharge He seen and evaluated for discharge planning. No muscle pain. Discharge instructions discussed at length with patient with CPK value of 7201 is greatly improved relatively from her admission. Patient will continue with by mouth hydration and minimal exertion Hospital Course Patient is a 27-year-old 4 months female who had significant rub my lysis after vigorous exercise. Patient did have some elevated LFTs as well as CPK levels which have trended down with IV hydration and supportive care. Pt Condition on Discharge: Good Discharge Disposition: Discharge Home Discharge Time: <= 30 minutes Discharge Instructions DIET: Follow Instructions for: As Tolerated, No Restrictions Activities you can perform: Regular-No Restrictions Continued Medications: Vit-Iron Carbonyl ( Plus Iron 29-1 mg) 1 Tab Tab 1 TAB PO DAILY for Nutritional Supplement, #30 TAB 0 Refills Libia Cuenca MD Jun 24, 2017 10:40
== END 2017-06-24 13:47 | disposition home or self-care (01) | DRG 558 ==
LOC: PHED 10:21 → PHEDA 12:52 → PH3A 14:13
PROVIDERS: ADMIT Hospitalist; ATTEND Hospitalist
DX: M62.82 Rhabdomyolysis (principal); E83.42 Hypomagnesemia; E87.6 Hypokalemia; G43.909 Migraine, unspecified, not intractable, without status migrainosus
CPT/HCPCS: 80048; 80053; 80074; 80076; 81001; 81003; 82550; 82552; 83735; 84703; 85025; 85610; 87086; 96360; J2405; J3480; J7030; J7070